=== PATIENT | female | born 1940 | race Caucasian/White ===

== ENCOUNTER 2019-12-27 23:06 | Inpatient (IN) | payer OTHER ==
[~2019-12-27] VITALS: Ht 152.4 cm; Wt 59.0 kg
[2019-12-27] MEDS ORDERED: NORVASC 2.5 MG2.5 M1 PO (23:51)
[2019-12-27] MEDS ORDERED: LIPITOR 20 MG T20 M1 PO (23:52)
[2019-12-27] MEDS ORDERED: XANAX 0.25 MG0.25 MG PO (23:52)
[2019-12-27] MEDS ORDERED: REMERON15 M2 PO (23:53)
[2019-12-28 02:30] VITALS: BP 188/87
[2019-12-28] MEDS ORDERED: KEFLEX500 M2 PO (03:03)
[2019-12-28] MEDS ORDERED: CORGARD40 M1 PO (03:04)
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
[2019-12-28 07:30] VITALS: BP 138/80
[2019-12-28 09:06] VITALS: BP 138/80
--- NOTE | 2019-12-28 15:28 | NUR ---
GRACY met with pt and Breanna PHAM and they reported on the special diet and provided this to to nursing. Pt sees Dr Prado at [facility] and Dr Koehler at [facility]. SW asked US to complete a records request from [facility]. breanna described pt as suicidal, pacing, little sleep and in chronic pain. While meeting with Dr prince it was advised that this pt may have dementia and Breanna became increaslingly defensive and dismissive of this DX. GRACY completed the intake assessment and TP. Set up a family meeting for 12/30 at 11:45 am. After this inital meeting pt became hostile and and defensive and was asked to leave the office when she demanded that I ask her memory questions.
--- NOTE | 2019-12-28 17:21 | NUR ---
Assumed care of patient this am. Patient is ambulatory and walks around the unit. Patient takes medications whole. Patient is suspicious of the medications. Patients affect is flat. Patient states that she requires a special diet, gluten free. Patient denies pain. Patient denies si/hi. Patients assessment shows clear breath sounds, active bowel sounds, and s1 s2 heard with auscultation. Patient states that she had a bowel movement this am.
[2019-12-28 19:15] VITALS: BP 141/81
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
--- NOTE | 2019-12-29 04:15 | NUR ---
ASSUMED CARE OF THIS PATIENT AT 1900 FOR REAGENT TENDER. AFFECT ANXIOUS. VERY MED CONCERNED. ASKING REPEATEDLY WHAT SHE WAS TAKING. COOPERATIVE WITH ASSESSMENT PROCESS. HAS BEEN SLEEPING THROUGH THE NIGHT. NO APPARENT DISTRESS. NO C/O. WILL CONTINUE TO MONITOR
[2019-12-29 07:30] VITALS: BP 130/65
--- NOTE | 2019-12-29 07:30 | NUR ---
Assumed care of patient this am. Patient is awake and ambulating in the morris. Patient is suspicious of medications. Patient takes medications whole with thin fluids. Patient was upset that we do not have a hairdryer on the unit. Patients affect is flat. Patient denies pain. Patient denies si/hi. Patients assessment shows clear breath sounds, active bowel sounds, and s1 s2 heard with auscultation.
[2019-12-29 08:00] VITALS: BP 130/65; BP 141/77
--- NOTE | 2019-12-29 15:19 | NUR ---
Yash spoke with Nereyda and their mutual friend Mariza and she stated that the pt called and reported that the Dr had told her she was doing testing tomorrow and that she was a " menace to society and should be institutionalized." Sw reassured them that this was not somehting the Dr Would say and that the neuro testing tomorrow would help towards a dx and treatment. Sw spent at least an hour listening, redirecting, reassuring and educating the family about inpt psych. This included LOS, expectations, d/c plans and ideas. This promotes self determination and right to choose quality of life for each family. Nereyda and Mariza thanked this worker for the time and effort put into supporting them and talking through their concens. SW reminded them that there would be a fmaily meeting tomorrow at 11:45 am. Sw also encouraged them to speak with the nurse about medications and testing orders. Nereyda asked that this worker be available at 4pm to speak with the pt about her pending testing and d/c plans. Sw reported this to nursing.
[2019-12-29 19:43] VITALS: BP 138/73
--- NOTE | 2019-12-30 05:23 | NUR ---
ASSUMED CARE OF THIS PATIENT AT 1900 FOR TELECOMMUNICATIONS CLERK. SHE HAS BEEN ISOLATIVE TO ROOM MOST OF SHIFT. COOPERATIVE WITH MEDS AND ASSESSMENT PROCESS. WAS UPSET AT GETTING A ROOMMATE. C/O TO STAFF THAT SHE WOULD NOT COME TO BED. NO APPARENT DISTRESS. WILL CONTINUE TO MONITOR
[2019-12-30 07:55] VITALS: BP 127/81
[2019-12-30 08:00] VITALS: BP 141/77
--- NOTE | 2019-12-30 08:30 | NUR ---
PT WONDERING AROUND THE UNIT STATING SHE HAS TESTING TODAY. PT NOT SITTING DOWN TO EAT, PT EATING STANDING UP. PT HAS METOPROLOL ORDERED AND NOT HOME BP MED. PT STATED SHE IS SCARED TO TAKE MED DUE TO HER DR. ORDERED SPECIAL BP MED. PT STATED IF SHE DIDN'T TAKE IT THEN HER BP WILL GO UP. PT WANTING BP RECHECKED DUE TO 127/81 NOT RIGHT. TOOK BP WITH SMALL CUFF TO LEFT UPPER ARM AND OBTAINED 141/77.
--- NOTE | 2019-12-30 13:47 | NUR ---
SW met with Dr Watters and Dayanara( lifelong friend). This included a medication review, d/c planning, education about dementia, possible causes for dementia and treatment plan. Pt had her neuropsych testing done today and will have her HAYDEN completed too. Nereyda and Mariza were satisfied with the outcome and treatment for pt's insomnia, and anxiety. Dr Watters educated them about the process and need for an acurate dx before adding medications. Pt will likely d/c home with 24/ supervision provided by family and maybe PD.
--- NOTE | 2019-12-30 15:16 | NUR ---
Another family meeting was scheduled for / at 1pm.
[2019-12-30 19:30] VITALS: BP 128/66
[2019-12-30 21:11] LABS: URINE BILIRUBIN NEGATIVE (Negative); URINE BLOOD NEGATIVE (Negative); URINE CLARITY CLEAR; URINE COLOR YELLOW; URINE GLUCOSE-RANDOM* NEGATIVE (Negative); URINE KETONES TRACE (Negative); URINE LEUKOCYTES-REFLEX NEGATIVE (Negative); URINE NITRITE-REFLEX NEGATIVE (Negative); URINE PROTEIN (DIPSTICK) NEGATIVE (Negative); URINE SPECIFIC GRAVITY 1.025 (1.005-1.035); URINE UROBILINOGEN 0.2 E.U./dl (0.2-1.0)
[2019-12-30 23:06] LABS: SYPHILIS AB Non Reactive (Non Reactive)
--- NOTE | 2019-12-31 00:44 | NUR ---
Care assumed of patient at 1915: Patient lying in bed at start of shift. Nurse entered room to introduce self. Patient awake. Patient immediately rolled her eyes and stated "what do you want now? I'm trying to sleep". Nurse educated patient on need of assessment and that her medication would be provided around 2029. Patient sarcastic, irritable. Denies pain or discomfort. Alert to person and place. Disoriented on current time and situation. Denies SI/HI/AH/VH. Patient states she is ready to go home and fixated on that thought throughout assessment. Denies depression or anxiety. Presents with blunted affect. Easily agitated. Patient declined HS snack "because I told you, I am going to sleep!". Took HS medication whole without difficulty. Required education with each pill provided and indications. Patient has been able to rest fairly well since medications provided. Patient did provide urine specimen which was delivered to lab.
[2019-12-31 08:00] VITALS: BP 124/71
[2019-12-31 08:20] VITALS: BP 124/71
--- NOTE | 2019-12-31 08:39 | NUR ---
PT UP WONDERING AROUND IN BARRETT AND DINNING ROOM. ASKED PT IF SHE WAS ANXIOUS AND NEED ANYTHING FOR ANXIETY, PT DENIES NEEDING ANYTHING. PT EATS STANDING UP. PT TOOK MEDS THIS AM WITHOUT ANY ISSUES. PT JUST ASKS WHAT EACH ONE IS.
--- NOTE | 2019-12-31 13:34 | NUR ---
GRACY met with pt and Breanna and reported that we can expect d/c on Friday. Dr Watters is available to visit with breanna on Friday during visiting hours to discuss the results of the neuropsych testing and d/c plans. Gracy sent a referral to Dr Pastor seeking an appt in the next 7 t 10 days. Gracy also reported to breanna that they could follow up with [facility] as she has all of that information from the previous inpt psych. Gracy also advised that if she wanted further appt to call and follow up with a therapist that she would like to see. GRACY offered assistance but breanna was unable to remember who she was wanting to use.
--- NOTE | 2019-12-31 16:06 | NUR ---
YASH received a message that Dr Pastor cannot cherry picker operator any pt's yet. Yash relayed this to Corrine. YASH and Corrine discussed how this pt cannot tolerate sitting for PHP, but still needs to be busy. YASH requested that they go to [facility] and complete the walk in process to access services.
--- NOTE | 2019-12-31 17:32 | NUR ---
PT WANTING CHICKEN STRIPS FOR DINNER. NOT ABLE TO ORDER DUE TO TIME TO ORDER. PT STANDS WHEN EATING. PT DID HAVE SOME BAKED CHIPS AND DRINKING ENSURE SHAKE.
[2019-12-31 19:48] VITALS: BP 121/58
[2019-12-31 21:22] VITALS: BP 121/58
--- NOTE | 2020-01-01 01:27 | NUR ---
REPORT FROM DAY NURSE WAS THAT PATIENT HAS BEEN STUCK WITH IDEA THAT SHE HAS TO SHAMPOO HER HAIR AND FIX IT UP FOR A FAMILY MEETING LATER TODAY. WHEN I CAME TO DO ASSESSMENT ON PATIENT SHE STATED THE ABOVE TO ME. I ASKED HER IF SHE WANTED TO DO HER SHOWER AND HAIR TONIGHT WHILE I WAS HERE OR IN THE MORNING. SHE SAID SHE WANTED TO DO SHOWER IN THE MORNING. SHE WENT ON ABOUT HOW SHE HAD TO SHAMPOO HER HAIR AND HAVE HERSELF LOOKING NICE FOR THE MEETING. SHE WANTED TO MAKE SURE I WOKE HER UP EARLY TO GET READY. I TOLD HER I WOULD. HER ROOM MATE CAME AND GOT ME A COUPLE OF HOURS LATER AND TOLD ME THAT PATIENT WAS IN THE SHOWER. PRIMARY SCHOOL TEACHER WAS DOING ROUNDS AT THAT TIME TOO AND NOTICED THAT PT WAS IN SHOWER AND WATER RUNNING OUT INTO THE HALLWAY. THIS NURSE AND PRIMARY SCHOOL TEACHER ASSISTED PT IN GETTING DRIED OFF AND FLOOR CLEANED UP. ALL THE LIGHTS WERE ON IN THE ROOM. I TOLD PATIENT THAT SHE NEEDED TO ASK NURSE BEFORE TAKING A SHOWER AND THAT WE HAD DISCUSSED THIS EARLIER AND SHE WANTED TO WAIT TILL MORNING. SHE REPLIED THAT EVERYONE WAS AFTER HER ABOUT HOW SHE NEEDED TO WASH HER HAIR AND TAKE A SHOWER AND SHE WAS TIRED OF EVERYONE INSISTING THAT SHE GET THIS DONE. SHE DIDN'T UNDERSTAND WHY PEOPLE WERE MAKING HER DO IT TONIGHT. VERY DELUSIONAL. SHE THEN SAID HER ROOMMATE WAS UPSET WITH HER AND THAT SHE DID NOT KICK HER OUT OF THE ROOM. SHE STATES SHE JUST ASKED THE ROOMMATE TO GET OUT OF THE BATHROOM SO SHE COULD TAKE A SHOWER. SHE SAID ROOMMATE HAD NOT BEEN IN BED ALL NIGHT. BUT ROOMMATE HAD BEEN IN BED, JUST NOT SLEEPING. PT WAS SORRY THAT HER ROOM MATE WAS UPSET WITH HER AND DID APOLOGIZE TO HER BUT ROOMMATE NOT ACCEPTING IT. MOVED ROOMMATE TO ANOTHER ROOM. THIS PATIENT PUTTERED AROUND THE ROOM FOR A LITTLE BIT AND IS NOW SLEEPING . WILL CONTINUE TO MONITOR.
[2020-01-01 09:58] VITALS: BP 137/71
[2020-01-01 10:08] VITALS: BP 137/71
[2020-01-01 19:37] VITALS: BP 131/63
--- NOTE | 2020-01-02 04:19 | NUR ---
Assumed care of pt @ 1900. Pt mostly calm et cooperative this shift. Spent 30 minutes with pt this evening explaining medications et what they were for before pt agreed to take medications whole without swallowing difficulties. Pt refused to take her home medication (due to b/p being too low in her opinion) et refused to take her antibiotic. Pt states that she wants to talk to the physician regarding her medication because she believes that they will kill her. VSWNL. Health assessment with no abnormalities at present time. Ambulates halls ad karol with steady gait. Currently resting in bed with eyes closed. Will continue to monitor per protocol.
[2020-01-02 09:27] VITALS: BP 134/73
--- NOTE | 2020-01-02 14:55 | NUR ---
0715 ASSUMED CARE OF PATIENT. PATIENT AMB IN BARRETT AT THIS TIME. PATIENT PACES HALLWAY AND DAYROOM. DENIES NEEDS, WAITING FOR BREAKFAST. 0740 ASSESSMENT COMPLETED AT THIS TIME, NO C/O PAIN, DENIES SI/HI AND AVH. PATIENT CONCERNED ABOUT WHAT MEDICATIONS ARE BEING GIVEN TO HER. DOES NOT TAKE MEDS WITHOUT ASKING QUESTIONS AND DECIDING IF SHE WANTS TO TAKE THEM. OBSERVED PATIENT WITH HANDS IN PANTS. WHEN ASKED PATIENT IF THERE WAS SOMETHING I COULD HELP HER WITH OR IF SHE WAS SCRATCHING AND NEEDED SOMETHING PATIENT STATED "IT IS JUST A HABIT BECAUSE I LOST WT AND PANTS ARE LOOSE". WILL CONTINUE TO MONITOR FOR CHANGES IN CONDITION.
[2020-01-02 19:57] VITALS: BP 109/53
--- NOTE | 2020-01-03 04:30 | NUR ---
Assumed care of pt @ 1900. Pt continues to ask this nurse why she has to have a roommate several times throughout the evening. Pt is demanding to have a private room et had to be coaxed to return to room et go to sleep several times. Pt was advised that she could speak to someone on the day shift but that a room change would not be happening tonight. Pt finally went to bed et is currently resting in bed with eyes closed. Pt took medications whole without difficulty after reassurance that she was not taking anything new. VSWNL. No abnormalities noted on health assessment at present time. Ambulates the halls ad karol with steady gait. Will continue to monitor per protocol.
[2020-01-03 07:53] VITALS: BP 136/68
--- NOTE | 2020-01-03 08:41 | NUR ---
PT PACING AROUND THE UNIT. PT STATED SHE WANTED TO HAVE HER EYEBROWS PLUCKED UNDER HER EYEBROW. THIS PIPELINE GANG SUPERVISOR STATED SHE WAS GOING HOME TODAY, PT STATED NO SHE DIDN'T THINK SHE WAS GOING HOME, BUT SOMEWHERE ELSE. PT TOOK MEDS WITHOUT ANY ISSUES. PT DID WANT TO KNOW WHAT EACH MED WAS.
[2020-01-03 09:00] VITALS: BP 136/68
[2020-01-03 20:24] VITALS: BP 94/47
[2020-01-03 20:30] VITALS: BP 94/47
--- NOTE | 2020-01-04 00:12 | NUR ---
PATIENT HAS BEEN IN BED SINCE 190. SHE DID AWAKEN TO TAKE HER HS MEDS. SHE HAS BEEN APPROPRIATE AND CALM AND COOPERATIVE. HELD HER NALDOL D/T BP WAS 94/47. SHE DOES NOT FEEL DIZZY OR DISORIENTED. SHE IS A/0X4. PATIENT IS LOOKING FORWARD TO GOING HOME AND IS HOPING THE SNOW COMING DOES NOT DETAIN HER LEAVING. SHE DENIES PAIN. SHE DID HAVE BM TONIGHT. BED IN LOW POSITION. CONTINUING TO MONITOR.
[2020-01-04 08:10] VITALS: BP 112/60
--- NOTE | 2020-01-04 08:49 | NUR ---
PT WANDERING AROUND DINING ROOM. PT TOOK MEDS WITHOUT ANY ISSUES. PT DIDN'T WANT HOME MED AT THIS TIME DUE TO BP IS LOWER THIS AM AT 112/60 PULSE OF 77. PT DID TAKE OTHER MEDS SCHEDUALED.
[2020-01-04 09:40] VITALS: BP 112/60
--- NOTE | 2020-01-04 13:26 | NUR ---
Yash spoke with Ashley [phone] intake at [facility] [place] and they will accept a walk in appt Mon- Fri 8:30am to 3pm. Yash will fax the d/c summary and order with meds list at d/c to [phone] fax. This will be for meds and therapy.
--- NOTE | 2020-01-04 16:00 | NUR ---
OFFERED PT THE MENU TO SEE IF SHE WOULD LIKE SOMETHING ELSE DIFFERENT TO EAT. PT REFUSED TO EAT ANYTHING DIFFERENT STATING THAT THE PROBLEM AND WHY SHE IS LOSING WEIGHT.
[2020-01-04 19:48] VITALS: BP 144/57
[2020-01-04 22:16] VITALS: BP 144/57
--- NOTE | 2020-01-05 01:20 | NUR ---
Approximately 2014 Pt. laying in bed with lights off and requesting her meds so she can, "go to sleep". PO pills given whole with thin liquids. No coughing or choking noted. Approximately same time as meds were being given pt. received a roomate from the ED. Pt. stated, "now what am I gonna do with that"?. Reassurance and education given. No distress noted.
[2020-01-05 09:08] VITALS: BP 131/67
[2020-01-05 09:29] VITALS: BP 131/67
[2020-01-05] MEDS ORDERED: REMERON 30 MG T30 M1 PO (10:38)
[2020-01-05] MEDS ORDERED: TRAZODONE HCL50 MG PO (10:40)
[2020-01-05] MEDS ORDERED: RISPERDAL 1 MG T1 MG PO (10:40)
[2020-01-05] MEDS ORDERED: B-12500 MCG PO (10:42)
[2020-01-05] MEDS ORDERED: ACIDOPHILUS1 EAC4 PO (10:42)
[2020-01-05 10:57] VITALS: BP 131/67
--- NOTE | 2020-01-05 11:42 | NUR ---
YASH met with pt and Nereyda and offered support, guidance and education. This included following up with Ashley at [facility] and report that this pt would be in tomorrow to complete her intake and to be considered for the PHP program. Despite this pt not having the insurance that may be needed. Yash faxed the referral to Dr Prado and [facility], this included her d/c summary and orders with meds list.
--- NOTE | 2020-01-05 12:03 | NUR ---
DISCHARGE INSTRUCTIONS REVIEWED WITH PATIENT AND ROOMMATE RACHELL-PT EXPRESSES UNDERSTANDING REGARDING MEDS AND FU RECOMMENDATIONS BUT STATES DOES NOT WANT TO TAKE TRAZADONE OR FU WITH [facility]-ARGUMENTATIVE WITH ROOOMATE-DR. KUNZ AND ANTONELLA CASTRO MET WITH PT RE ABOVE CONCERNS AND DID RELUCTANTLY AGREE TO COMPLY. ANXIOUS FACIAL EXPRESSION AT TIME OF DC BUT DENIES SI/SH/HI. TRANSPORTED OFF UNIT VIA WC ACCOMPNIED BY NURSING STAFF AND RACHELL BENOIT TO PRIVATE VEHICLE
--- NOTE | 2020-01-06 13:19 | NUR ---
I recieved a message to call Rafael, Edla's housemate. Nereyda informed me that Elda is not taking her medications, she is anxiety ridden and [facility] "could not help her." She continued saying that Elda wanted to go to [facility]. I inquired as to why she was not taking her medications. Nereyda could not answer the question. I suggested ways to decrease her anxiety. Nereyda and Elda did not follow the and physician's recommendation about finding a NF for [place]. I inquired about what happened with the finding a NF. Nereyda responded "I can't just drop her off at a prison. I informed Nereyda I would consult Dr. Janene Watters called Nereyda. Nereyda informed him that she was driving thr[place]-five miles an hour and [place] opened up the car door. She told Dr. Watters the same information she shared with me. Dr. Watters recommended Nereyda call EMS and have Elda transported to our ER. I informed Nereyda that Elda would have a roommate. She stated that is fine.
== END 2020-01-05 11:30 | disposition home or self-care (01) | DRG 881 ==
LOC: SBH
PROVIDERS: ADMIT Psychiatry & Neurology Psychiatry
DX: F32.9 Major depressive disorder, single episode, unspecified (principal); F01.51 Vascular dementia, unspecified severity, with behavioral disturbance; E43 Unspecified severe protein-calorie malnutrition; R45.851 Suicidal ideations; I10 Essential (primary) hypertension; Z96.652 Presence of left artificial knee joint; E78.5 Hyperlipidemia, unspecified; G89.29 Other chronic pain; N30.10 Interstitial cystitis (chronic) without hematuria; F41.9 Anxiety disorder, unspecified; Z68.25 Body mass index [BMI] 25.0-25.9, adult; Z88.1 Allergy status to other antibiotic agents; Z88.0 Allergy status to penicillin; Z90.49 Acquired absence of other specified parts of digestive tract; Z90.710 Acquired absence of both cervix and uterus
CPT/HCPCS: 10880